=== PATIENT | female | born 1970 | race Caucasian/White ===

== ENCOUNTER 2021-08-22 07:39 | Day surgery (SDC) | payer MEDICAID ==
[~2021-08-22] VITALS: Ht 160 cm; Wt 93.4 kg
[2021-08-22 08:40] LABS: HCG,QUAL RESULT NEGATIVE (NEGATIVE)
[2021-08-22] MEDS ORDERED: MEPERIDINE 100 MG INJ. 100 MG/ML VIAL ONE (09:26)
[2021-08-22] MEDS ORDERED: MIDAZOLAM HCL 5 MG/5 ML VIAL ONE (09:26)
[2021-08-22] MEDS ORDERED: fentaNYL CITRATE/PF 100 MCG/2 ML AMP ONE (15:00)
[2021-08-22 15:22] VITALS: BP_SYST 123
== END 2021-08-22 11:20 | disposition home or self-care (01) ==
LOC: SDS 07:39 → SMU 09:36 → SDS 11:20
PROVIDERS: ATTEND Internal Medicine
DX: Z12.11 Encounter for screening for malignant neoplasm of colon (principal); D12.3 Benign neoplasm of transverse colon; K57.30 Diverticulosis of large intestine without perforation or abscess without bleeding; K64.8 Other hemorrhoids; Z79.899 Other long term (current) drug therapy; Z20.822 Contact with and (suspected) exposure to COVID-19
CPT/HCPCS: 36415; 45380; 82962; 84703; 87426; 88305; 99152; G0378; J2250; J3010; J2175